=== PATIENT | female | born 1950 | race Caucasian/White ===

== ENCOUNTER → 2023-03-27 08:16 | Outpatient (REF) | payer MEDICARE, BC, SELFPAY ==
[2023-03-27 10:04] LABS: INR 3.31; PT 33.6 Sec (11.4-14.6)
== END ==
LOC: REG 08:16
PROVIDERS: ATTENDING PHYSICIAN Internal Medicine Cardiovascular Disease; FAMILY PHYSICIAN Physician Assistant Medical
DX: Z79.01 Long term (current) use of anticoagulants (principal); Z95.2 Presence of prosthetic heart valve
CPT/HCPCS: 36415; 85610

== ENCOUNTER → 2023-04-23 08:09 | Outpatient (REF) | payer MEDICARE, BC, SELFPAY ==
[2023-04-23 09:24] LABS: INR 3.73; PT 36.9 Sec (11.4-14.6)
[2023-04-23 13:07] LABS: Glycohemoglobin (HgbA1c) 6.1 % (4.0-5.6)
== END ==
LOC: REG 08:09
PROVIDERS: ATTENDING PHYSICIAN Internal Medicine Cardiovascular Disease; FAMILY PHYSICIAN Physician Assistant Medical
DX: I48.11 Longstanding persistent atrial fibrillation (principal); Z79.01 Long term (current) use of anticoagulants; Z95.2 Presence of prosthetic heart valve; R73.9 Hyperglycemia, unspecified
CPT/HCPCS: 36415; 83036; 85610

== ENCOUNTER → 2023-05-07 08:09 | Outpatient (REF) | payer MEDICARE, BC, SELFPAY ==
[2023-05-07 09:05] LABS: INR 2.91; PT 30.3 Sec (11.4-14.6)
== END ==
LOC: REG 08:09
PROVIDERS: ATTENDING PHYSICIAN Internal Medicine Cardiovascular Disease; FAMILY PHYSICIAN Physician Assistant Medical
DX: I48.11 Longstanding persistent atrial fibrillation (principal); Z79.01 Long term (current) use of anticoagulants; Z95.2 Presence of prosthetic heart valve
CPT/HCPCS: 36415; 85610

== ENCOUNTER → 2023-05-21 08:09 | Outpatient (REF) | payer MEDICARE, BC, SELFPAY ==
[2023-05-21 09:51] LABS: INR 2.99
== END ==
LOC: REG 08:09
PROVIDERS: ATTENDING PHYSICIAN Internal Medicine Cardiovascular Disease; FAMILY PHYSICIAN Physician Assistant Medical
DX: I48.11 Longstanding persistent atrial fibrillation (principal); Z79.01 Long term (current) use of anticoagulants; Z95.2 Presence of prosthetic heart valve
CPT/HCPCS: 36415; 85610

== ENCOUNTER → 2023-06-18 08:10 | Outpatient (REF) | payer MEDICARE, BC, SELFPAY ==
[2023-06-18 09:22] LABS: INR 2.79; PT 29.3 Sec (11.4-14.6)
== END ==
LOC: REG 08:10
PROVIDERS: ATTENDING PHYSICIAN Internal Medicine Cardiovascular Disease
DX: I48.11 Longstanding persistent atrial fibrillation (principal); Z79.01 Long term (current) use of anticoagulants; Z95.2 Presence of prosthetic heart valve
CPT/HCPCS: 36415; 85610

== ENCOUNTER → 2023-07-19 08:05 | Outpatient (REF) | payer MEDICARE, BC, SELFPAY ==
[2023-07-19 09:17] LABS: INR 3.06; PT 31.6 Sec (11.4-14.6)
== END ==
LOC: REG 08:05
PROVIDERS: ATTENDING PHYSICIAN Internal Medicine Cardiovascular Disease; FAMILY PHYSICIAN Physician Assistant Medical
DX: I48.11 Longstanding persistent atrial fibrillation (principal); Z79.01 Long term (current) use of anticoagulants; Z95.2 Presence of prosthetic heart valve
CPT/HCPCS: 36415; 85610

== ENCOUNTER → 2023-08-22 08:11 | Outpatient (REF) | payer MEDICARE, BC, SELFPAY ==
[2023-08-22 09:11] LABS: INR 2.58
== END ==
LOC: REG 08:11
PROVIDERS: ATTENDING PHYSICIAN Internal Medicine Cardiovascular Disease; FAMILY PHYSICIAN Physician Assistant Medical
DX: I48.11 Longstanding persistent atrial fibrillation (principal); Z79.01 Long term (current) use of anticoagulants; Z95.2 Presence of prosthetic heart valve
CPT/HCPCS: 36415; 85610

== ENCOUNTER → 2023-09-20 08:08 | Outpatient (REF) | payer MEDICARE, BC, SELFPAY ==
[2023-09-20 09:25] LABS: INR 2.32; PT 25.7 Sec (11.4-14.6)
== END ==
LOC: REG 08:08
PROVIDERS: ATTENDING PHYSICIAN Internal Medicine Cardiovascular Disease; FAMILY PHYSICIAN Physician Assistant Medical
DX: I48.11 Longstanding persistent atrial fibrillation (principal); Z79.01 Long term (current) use of anticoagulants; Z95.2 Presence of prosthetic heart valve
CPT/HCPCS: 36415; 85610

== ENCOUNTER → 2023-10-03 08:28 | Outpatient (REF) | payer MEDICARE, BC, SELFPAY ==
[2023-10-03 09:34] LABS: PT 28.1 Sec (11.4-14.6)
== END ==
LOC: REG 08:28
PROVIDERS: ATTENDING PHYSICIAN Internal Medicine Cardiovascular Disease; FAMILY PHYSICIAN Physician Assistant Medical
DX: I48.11 Longstanding persistent atrial fibrillation (principal); Z79.01 Long term (current) use of anticoagulants; Z95.2 Presence of prosthetic heart valve
CPT/HCPCS: 36415; 85610

== ENCOUNTER → 2023-11-05 08:20 | Outpatient (REF) | payer MEDICARE, BC, SELFPAY ==
[2023-11-05 09:36] LABS: INR 2.81; PT 29.5 Sec (11.4-14.6)
== END ==
LOC: REG 08:20
PROVIDERS: ATTENDING PHYSICIAN Internal Medicine Cardiovascular Disease; FAMILY PHYSICIAN Physician Assistant Medical
DX: Z95.2 Presence of prosthetic heart valve (principal); Z86.73 Personal history of transient ischemic attack (TIA), and cerebral infarction without residual deficits; Z79.01 Long term (current) use of anticoagulants
CPT/HCPCS: 36415; 85610

== ENCOUNTER → 2023-12-11 07:57 | Outpatient (REF) | payer MEDICARE, BC, SELFPAY ==
[2023-12-11 09:07] LABS: INR 2.87
== END ==
LOC: REG 07:57
PROVIDERS: ATTENDING PHYSICIAN Internal Medicine Cardiovascular Disease; FAMILY PHYSICIAN Physician Assistant Medical
DX: I48.11 Longstanding persistent atrial fibrillation (principal); Z79.01 Long term (current) use of anticoagulants; Z95.2 Presence of prosthetic heart valve
CPT/HCPCS: 36415; 85610

== ENCOUNTER → 2024-01-08 08:34 | Outpatient (REF) | payer MEDICARE, BC, SELFPAY ==
[2024-01-08 10:07] LABS: INR 4.11; PT 39.4 Sec (11.4-14.6)
[2024-01-08 10:57] LABS: Digoxin 0.4 ng/ml (0.8-2.0)
== END ==
LOC: REG 08:34
PROVIDERS: ATTENDING PHYSICIAN Internal Medicine Cardiovascular Disease
DX: Z95.2 Presence of prosthetic heart valve (principal); Z86.73 Personal history of transient ischemic attack (TIA), and cerebral infarction without residual deficits; Z79.01 Long term (current) use of anticoagulants; I27.21 Secondary pulmonary arterial hypertension; I10 Essential (primary) hypertension; I48.11 Longstanding persistent atrial fibrillation
CPT/HCPCS: 36415; 80162; 85610

== ENCOUNTER → 2024-01-16 07:58 | Outpatient (REF) | payer MEDICARE, BC, SELFPAY ==
[2024-01-16 09:02] LABS: INR 2.41; PT 26.7 Sec (11.4-14.6)
== END ==
LOC: REG 07:58
PROVIDERS: ATTENDING PHYSICIAN Internal Medicine Cardiovascular Disease; FAMILY PHYSICIAN Physician Assistant Medical
DX: Z95.2 Presence of prosthetic heart valve (principal); Z86.73 Personal history of transient ischemic attack (TIA), and cerebral infarction without residual deficits; Z79.01 Long term (current) use of anticoagulants
CPT/HCPCS: 36415; 85610

== ENCOUNTER → 2024-02-11 08:24 | Outpatient (REF) | payer MEDICARE, BC, SELFPAY ==
[2024-02-11 09:29] LABS: PT 33.3 Sec (11.4-14.6)
== END ==
LOC: REG 08:24
PROVIDERS: ATTENDING PHYSICIAN Internal Medicine Cardiovascular Disease; FAMILY PHYSICIAN Physician Assistant Medical
DX: Z95.2 Presence of prosthetic heart valve (principal); Z86.73 Personal history of transient ischemic attack (TIA), and cerebral infarction without residual deficits; Z79.01 Long term (current) use of anticoagulants
CPT/HCPCS: 36415; 85610

== ENCOUNTER → 2024-03-12 13:41 | Outpatient (REF) | payer MEDICARE, BC, SELFPAY ==
[2024-03-12 14:33] LABS: INR 2.81; PT 29.5 Sec (11.4-14.6)
== END ==
LOC: REG 13:41
PROVIDERS: ATTENDING PHYSICIAN Internal Medicine Cardiovascular Disease; FAMILY PHYSICIAN Physician Assistant Medical
DX: Z95.2 Presence of prosthetic heart valve (principal); Z86.73 Personal history of transient ischemic attack (TIA), and cerebral infarction without residual deficits; Z79.01 Long term (current) use of anticoagulants
CPT/HCPCS: 36415; 85610

== ENCOUNTER → 2024-04-14 13:45 | Outpatient (REF) | payer MEDICARE, BC, SELFPAY ==
[2024-04-14 16:10] LABS: INR 2.73; PT 28.9 Sec (11.4-14.6)
== END ==
LOC: REG 13:45
PROVIDERS: ATTENDING PHYSICIAN Internal Medicine Cardiovascular Disease
DX: I48.11 Longstanding persistent atrial fibrillation (principal); Z79.01 Long term (current) use of anticoagulants; Z95.2 Presence of prosthetic heart valve
CPT/HCPCS: 36415; 85610

== ENCOUNTER → 2024-05-15 13:32 | Outpatient (REF) | payer MEDICARE, BC, SELFPAY ==
[2024-05-15 14:24] LABS: % Basophils 0.6 % (0-2); % Eosinophils 1.2 % (0-6); % Immature Granulocytes 0.3 % (0-0.5); % Lymphocytes 28.5 % (20.5-51.1); % Monocytes 7.7 % (1.7-9.3); % Neutrophils 61.7 % (42.2-75.2); Absolute Basophils 0.1 10^3/uL (0-0.2); Absolute Eosinophils 0.1 10^3/uL (0-0.7); Absolute Lymphocytes 2.8 10^3/uL (1.2-3.4); Absolute Monocytes 0.8 10^3/uL (0.1-0.6); Hematocrit 42.5 % (37.0-47.0); Hemoglobin 13.7 g/dL (12.0-16.0); Mean Corp Hgb Conc. 32.2 g/dL (33.0-37.0); Mean Corpuscular Hgb 28.2 pg (27.0-31.0); Mean Corpuscular Volume 87.6 fL (81.0-99.0); Nucleated Red Blood Cells % 0 %; Platelet Count 265 10^3/uL (130-400); Red Blood Cell Count 4.85 10^6/uL (4.20-5.40); Red Cell Dist. Width 15.2 % (11.5-14.5); White Blood Cell Count 9.8 10^3/uL (4.8-10.8)
[2024-05-15 14:40] LABS: NT-proBNP 1650 pg/ml
[2024-05-15 14:51] LABS: ALT (SGPT) 22 U/L (0-35); AST (SGOT) 33 U/L (14-36); Albumin 4.4 g/dl (3.5-5.0); Alkaline Phosphatase 121 U/L (38-126); Blood Urea Nitrogen 47 mg/dl (7-17); Calcium 10.3 mg/dl (8.4-10.2); Carbon Dioxide 32 mmol/L (22-30); Chloride 102 mmol/L (98-107); Glucose 92 mg/dl (70-99); HDL Cholesterol 78 mg/dl; LDL Cholesterol, Calculated 81 mg/dl; Potassium 4.7 mmol/L (3.5-5.1); Sodium 141 mmol/L (135-145); Total Bilirubin 0.9 mg/dl (0.2-1.3); Total Cholesterol 177 mg/dl (50-199); Total Protein 7.7 g/dl (6.3-8.2); Triglyceride 92 mg/dl (10-149); Very Low Density Lipoprotein 18 mg/dl (0-30); eGFR 52.73
[2024-05-15 15:18] LABS: TSH Reflex To Free T4 0.43 uIU/ml (0.47-4.68)
[2024-05-15 15:26] LABS: Digoxin 0.5 ng/ml (0.8-2.0)
[2024-05-15 15:47] LABS: Free T4 2.37 ng/dl (0.78-2.19)
== END ==
LOC: REG 13:32
PROVIDERS: ATTENDING PHYSICIAN Internal Medicine Cardiovascular Disease; FAMILY PHYSICIAN Physician Assistant Medical
DX: I27.0 Primary pulmonary hypertension (principal); I50.32 Chronic diastolic (congestive) heart failure; E78.5 Hyperlipidemia, unspecified; N28.9 Disorder of kidney and ureter, unspecified; I47.19 Other supraventricular tachycardia; E03.9 Hypothyroidism, unspecified
CPT/HCPCS: 36415; 80053; 80061; 80162; 83880; 84439; 84443; 85025

== ENCOUNTER → 2024-05-19 13:28 | Outpatient (REF) | payer MEDICARE, BC, SELFPAY ==
[2024-05-19 15:11] LABS: INR 3.57; PT 35.4 Sec (11.4-14.6)
== END ==
LOC: REG 13:28
PROVIDERS: ATTENDING PHYSICIAN Internal Medicine Cardiovascular Disease; FAMILY PHYSICIAN Physician Assistant Medical
DX: Z95.2 Presence of prosthetic heart valve (principal); Z86.73 Personal history of transient ischemic attack (TIA), and cerebral infarction without residual deficits; Z79.01 Long term (current) use of anticoagulants
CPT/HCPCS: 36415; 85610

== ENCOUNTER → 2024-06-17 13:35 | Outpatient (REF) | payer MEDICARE, BC, SELFPAY ==
[2024-06-17 15:08] LABS: INR 2.67; PT 28.4 Sec (11.4-14.6)
== END ==
LOC: REG 13:35
PROVIDERS: ATTENDING PHYSICIAN Internal Medicine Cardiovascular Disease
DX: Z95.2 Presence of prosthetic heart valve (principal); Z86.73 Personal history of transient ischemic attack (TIA), and cerebral infarction without residual deficits; Z79.01 Long term (current) use of anticoagulants
CPT/HCPCS: 36415; 85610

== ENCOUNTER → 2024-07-22 13:31 | Outpatient (REF) | payer MEDICARE, BC, SELFPAY ==
[2024-07-22 14:28] LABS: PT 27.9 Sec (11.4-14.6)
== END ==
LOC: REG 13:31
PROVIDERS: ATTENDING PHYSICIAN Internal Medicine Cardiovascular Disease
DX: Z95.2 Presence of prosthetic heart valve (principal); Z86.73 Personal history of transient ischemic attack (TIA), and cerebral infarction without residual deficits; Z79.01 Long term (current) use of anticoagulants
CPT/HCPCS: 36415; 85610

== ENCOUNTER → 2024-08-14 13:24 | Outpatient (REF) | payer MEDICARE, BC, SELFPAY ==
[2024-08-14 14:11] LABS: INR 2.64; PT 28.1 Sec (11.4-14.6)
== END ==
LOC: REG 13:24
PROVIDERS: ATTENDING PHYSICIAN Internal Medicine Cardiovascular Disease; FAMILY PHYSICIAN Physician Assistant Medical
DX: Z95.2 Presence of prosthetic heart valve (principal); Z86.73 Personal history of transient ischemic attack (TIA), and cerebral infarction without residual deficits; Z79.01 Long term (current) use of anticoagulants
CPT/HCPCS: 36415; 85610

== ENCOUNTER → 2024-08-27 09:15 | Outpatient (REF) | payer MEDICARE, BC, SELFPAY | LOC: HWRCS 09:15 | PROVIDERS: ATTENDING PHYSICIAN Internal Medicine Cardiovascular Disease; FAMILY PHYSICIAN Physician Assistant Medical | DX: I27.21 Secondary pulmonary arterial hypertension (principal) | CPT/HCPCS: 93306 ==

== ENCOUNTER → 2024-09-11 13:26 | Outpatient (REF) | payer MEDICARE, BC, SELFPAY ==
[2024-09-11 14:24] LABS: INR 2.52; PT 27.6 Sec (11.4-14.6)
== END ==
LOC: REG 13:26
PROVIDERS: ATTENDING PHYSICIAN Internal Medicine Cardiovascular Disease; FAMILY PHYSICIAN Physician Assistant Medical
DX: Z95.2 Presence of prosthetic heart valve (principal); Z86.73 Personal history of transient ischemic attack (TIA), and cerebral infarction without residual deficits; Z79.01 Long term (current) use of anticoagulants
CPT/HCPCS: 36415; 85610

== ENCOUNTER → 2024-10-15 13:34 | Outpatient (REF) | payer MEDICARE, BC, SELFPAY ==
[2024-10-15 14:38] LABS: INR 3.39; PT 34.5 Sec (11.4-14.6)
== END ==
LOC: REG 13:34
PROVIDERS: ATTENDING PHYSICIAN Internal Medicine Cardiovascular Disease; FAMILY PHYSICIAN Physician Assistant Medical
DX: I48.11 Longstanding persistent atrial fibrillation (principal); Z79.01 Long term (current) use of anticoagulants
CPT/HCPCS: 36415; 85610

== ENCOUNTER → 2024-11-12 13:45 | Outpatient (REF) | payer MEDICARE, BC, SELFPAY ==
[2024-11-12 14:38] LABS: INR 2.66; PT 28.8 Sec (11.4-14.6)
[2024-11-12 14:47] LABS: ALT (SGPT) 22 U/L (0-35); AST (SGOT) 31 U/L (14-36); Albumin 5.0 g/dl (3.5-5.0); Alkaline Phosphatase 98 U/L (38-126); Blood Urea Nitrogen 34 mg/dl (7-17); Calcium 10.1 mg/dl (8.4-10.2); Carbon Dioxide 29 mmol/L (22-30); Chloride 99 mmol/L (98-107); Glucose 90 mg/dl (70-99); HDL Cholesterol 88 mg/dl; LDL Cholesterol, Calculated 76 mg/dl; Potassium 4.0 mmol/L (3.5-5.1); Sodium 137 mmol/L (135-145); Total Protein 8.3 g/dl (6.3-8.2); Very Low Density Lipoprotein 20 mg/dl (0-30); eGFR 52.40
[2024-11-13 11:28] LABS: Glycohemoglobin (HgbA1c) 5.9 % (4.0-5.6)
== END ==
LOC: REG 13:45
PROVIDERS: ATTENDING PHYSICIAN Internal Medicine Cardiovascular Disease; FAMILY PHYSICIAN Physician Assistant Medical
DX: I48.11 Longstanding persistent atrial fibrillation (principal); Z79.01 Long term (current) use of anticoagulants; R73.03 Prediabetes; E03.9 Hypothyroidism, unspecified; N18.31 Chronic kidney disease, stage 3a; E78.5 Hyperlipidemia, unspecified
CPT/HCPCS: 36415; 80053; 80061; 83036; 84443; 85610

== ENCOUNTER → 2024-12-11 13:33 | Outpatient (REF) | payer MEDICARE, BC, SELFPAY ==
[2024-12-11 14:09] LABS: INR 3.32; PT 33.5 Sec (11.4-14.6)
== END ==
LOC: REG 13:33
PROVIDERS: ATTENDING PHYSICIAN Internal Medicine Cardiovascular Disease; FAMILY PHYSICIAN Physician Assistant Medical
DX: I48.11 Longstanding persistent atrial fibrillation (principal); Z79.01 Long term (current) use of anticoagulants
CPT/HCPCS: 36415; 85610